=== PATIENT | male | born 1960 | race Caucasian/White ===

== ENCOUNTER → 2016-10-20 | Outpatient (CLI) | payer OTHER ==
[~2016-10-20] MED LIST: ALEVE220 MG PO; EFFEXOR XR150 MG PO; EFFEXOR XR75 MG PO; PROBIOTIC1 EAC1 PO; ZYRTEC10 MG PO
== END | disposition disaster alternative care site (69) ==
LOC: GRAD 09:12
DX: E05.00 Thyrotoxicosis with diffuse goiter without thyrotoxic crisis or storm (principal)
CPT/HCPCS: A9516

== ENCOUNTER → 2017-01-06 | Outpatient (CLI) | payer OTHER | LOC: LKCL 11:08 | DX: E05.00 Thyrotoxicosis with diffuse goiter without thyrotoxic crisis or storm (principal) ==